=== PATIENT | female | born 1955 | race Caucasian/White ===

== ENCOUNTER → 2017-08-22 | Outpatient (CLI) | payer OTHER ==
--- NOTE | 2017-08-23 10:54 | MM ---
Reason for exam: screening (asymptomatic). Last mammogram was performed 2 years and 1 month ago. History: Patient is postmenopausal, has history of other cancer at age 33, and is nulliparous. Physical Findings: A clinical breast exam by your physician is recommended on an annual basis and results should be correlated with mammographic findings. MG Screening Mammo w CAD Bilateral CC and MLO view(s) were taken. Prior study comparison: August 03, 2015, bilateral MG screening mammo w CAD. May 03, 2010, mammogram, performed at [facility]. There are scattered fibroglandular densities. No significant changes when compared with prior studies. ASSESSMENT: Benign, BI-RAD 2 RECOMMENDATION: Routine screening mammogram of both breasts in 1 year.
== END | disposition home or self-care (01) ==
LOC: RADMAMWWP 13:07
PROVIDERS: ATTEND Internal Medicine
DX: Z12.31 Encounter for screening mammogram for malignant neoplasm of breast (principal)
CPT/HCPCS: 77067

== ENCOUNTER 2017-08-27 09:56 | Day surgery (SDC) | payer OTHER ==
[2017-08-23 15:56] VITALS: BMI 37.4
[~2017-08-27 09:56] MED LIST: LACTATED RINGERS 1,000 ML IV SCH
[2017-08-27 10:55] VITALS: RESP 16; TEMP 98.2
[2017-08-27] MEDS ORDERED: LIDOCAINE 1% 20 ML VIAL (10MG/ML) FOR IV START INTRADERMA ONE (11:02)
[2017-08-27] MEDS ORDERED: fentaNYL (PF) 50 MCG/ML 2 ML AMP ONE (11:04)
[2017-08-27] MEDS ORDERED: PROPOFOL 10 MG/ML 20 ML VIAL IV ONE (11:04)
--- NOTE | 2017-08-27 11:09 | P.GSHP ---
History of Present Illness H&P Date: 08/27/17 Chief Complaint: Screening colonoscopy This is a 62-year-old female referred from Dr. Granger. Patient is today for screening colonoscopy. 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), prolapsed bladder, hx skin cancer, HEMMORIODS History of Any Multi-Drug Resistant Organisms: None Reported Past Surgical History: Bladder Surgery Additional Past Surgical History / Comment(s): bladder sling, hemorrhoidectomy, FOOT SX Past Anesthesia/Blood Transfusion Reactions: No Reported Reaction Smoking Status: Former smoker - Past Family History Mother Family Medical History: Cancer Additional Family Medical History / Comment(s): LUNG Medications and Allergies Home Medications Medication Instructions Recorded Confirmed Type Ibuprofen [Motrin] 800 mg PO QID PRN 01/07/15 08/23/17 History Omeprazole [PriLOSEC] 20 mg PO BID PRN 01/07/15 08/23/17 History traMADol HCl [Ultram] 50 mg PO TID 01/07/15 08/23/17 History Atorvastatin [Lipitor] 20 mg PO DAILY 08/23/17 08/23/17 History Gabapentin [Neurontin] 400 mg PO TID 08/23/17 08/23/17 History tiZANidine HCL 2 mg PO TID PRN 08/23/17 08/23/17 History Allergies Allergy/AdvReac Type Severity Reaction Status Date / Time codeine Allergy Rash/Hives Verified 08/27/17 10:34 Surgical - Exam Vital Signs Temp Pulse Resp BP Pulse Ox 98.2 F 85 16 169/77 97 08/27/17 10:54 08/27/17 10:54 08/27/17 10:54 08/27/17 10:54 08/27/17 10:54 - General well developed, no distress - Eyes PERRL - ENT normal pinna - Neck no masses - Respiratory normal expansion - Cardiovascular Rhythm: regular - Abdomen Abdomen: soft, non tender Assessment and Plan Assessment: We will perform screening colonoscopy.
[2017-08-27 11:52] VITALS: BP 106/69; PULSE 82
--- NOTE | 2017-09-04 10:53 | P.OP ---
Date of Procedure: 08/27/17 Preoperative Diagnosis: Screening colonoscopy Postoperative Diagnosis: Diverticulosis Procedure(s) Performed: Colonoscopy Anesthesia: MAC Surgeon: Erik Gonzalez Pathology: none sent Condition: stable Disposition: PACU Description of Procedure: Patient's placed the operative table in supine position. She received IV sedation. Digital rectal exam was performed which revealed no abnormalities. The flexible colonoscope was then placed patient anus passed throughout the entire colon. The ileocecal valve was visualized. The cecum, ascending and transverse colon appeared normal. The descending; mild diverticular changes. The scope summer back the rectum appeared normal. Scope was withdrawn for patient.
== END 2017-08-27 12:07 | disposition home or self-care (01) ==
LOC: ORWHC2ENDO 09:56
PROVIDERS: ATTEND Surgery
DX: Z12.11 Encounter for screening for malignant neoplasm of colon (principal); K57.30 Diverticulosis of large intestine without perforation or abscess without bleeding; E78.5 Hyperlipidemia, unspecified; K21.9 Gastro-esophageal reflux disease without esophagitis; M19.90 Unspecified osteoarthritis, unspecified site; Z87.891 Personal history of nicotine dependence; Z86.19 Personal history of other infectious and parasitic diseases; Z85.828 Personal history of other malignant neoplasm of skin; Z79.899 Other long term (current) drug therapy; Z79.891 Long term (current) use of opiate analgesic; Z88.5 Allergy status to narcotic agent
CPT/HCPCS: 45378; J3010; J2704

== ENCOUNTER → 2018-07-23 | Outpatient (CLI) | payer MEDICARE ==
--- NOTE | 2018-07-23 07:55 | US ---
EXAMINATION TYPE: US abdomen complete DATE OF EXAM: 07/23/2018 COMPARISON: NONE CLINICAL HISTORY: Left Upper R10.12 R10.9 Pelvic Pain. EXAM MEASUREMENTS: Liver Length: 13.9 cm Gallbladder Wall: 0.3 cm CBD: 0.6 cm Spleen: 8.7 cm Right Kidney: 10.1 x 4.5 x 5.6 cm Left Kidney: 9.6 x 5.3 x 4.9 cm Pancreas: visualized portions wnl, fluid filled stomach noted as patient was drinking for a pelvic u ltrasound. Liver: wnl Gallbladder: appears contracted, patient states she has not eaten since 8 pm and only drinking water for pelvic exam Evidence for sonographic Sage's sign: No CBD: wnl Spleen: wnl Right Kidney: No hydronephrosis or masses seen Left Kidney: No hydronephrosis or masses seen Upper IVC: wnl Abd Aorta: wnl The liver is homogenous. The intrahepatic portion of the IVC and proximal abdominal aorta are within normal limits. There is no evidence of cholelithiasis. Common bile duct is unremarkable. The visu alized portions of the pancreas are homogenous. The spleen is unremarkable. Kidneys are symmetric a nd free of hydronephrosis. No renal lesions are seen. IMPRESSION: 1. Contracted gallbladder. Otherwise unremarkable study.
--- NOTE | 2018-07-23 07:56 | US ---
EXAMINATION TYPE: US transvaginal DATE OF EXAM: 07/23/2018 COMPARISON: NONE CLINICAL HISTORY: Left Upper R10.12 R10.9 Pelvic Pain. TECHNIQUE: Transvaginal (TV). Patient was not full, so she opted for TV. Date of LMP: postmenopausal, no HRT. EXAM MEASUREMENTS: Uterus: 6.8 x 2.8 x 4.0 cm Endometrial Stripe: 0.3 cm Right Ovary: 2.4 x 1.9 x 1.4 cm Left Ovary: 2.6 x 1.8 x 1.5 cm 1. Uterus: Anteverted wnl 2. Endometrium: wnl 3. Right Ovary: wnl 4. Left Ovary: wnl 5. Bilateral Adnexa: wnl 6. Posterior cul-de-sac: no free fluid IMPRESSION: 1. No distinct abnormality appreciated.
== END | disposition home or self-care (01) ==
LOC: RADUSWWP 06:48
PROVIDERS: ATTEND Internal Medicine
DX: K82.0 Obstruction of gallbladder (principal); R10.12 Left upper quadrant pain; R10.2 Pelvic and perineal pain
CPT/HCPCS: 76700; 76830

== ENCOUNTER → 2018-08-16 | Outpatient (CLI) | payer MEDICARE ==
[2018-08-16 16:20] LABS: DHEA Sulfate 50.6 ug/dL (26.0-430.0)
[2018-08-16 16:22] LABS: T4, Free (Free Thyroxine) 0.9 ng/dL (0.80-1.80)
[2018-08-16 16:24] LABS: Progesterone <0.2 ng/mL
[2018-08-16 16:25] LABS: Insulin Level 28.5 mIU/mL (3.0-25.0)
== END | disposition home or self-care (01) ==
LOC: LABWHC1 10:03
PROVIDERS: ATTEND Surgery
DX: E34.9 Endocrine disorder, unspecified (principal); R53.81 Other malaise; N95.2 Postmenopausal atrophic vaginitis; G47.00 Insomnia, unspecified; R68.82 Decreased libido; R61 Generalized hyperhidrosis
CPT/HCPCS: 36415; 82627; 82670; 82728; 83001; 83002; 83525; 84140; 84144; 84270; 84402; 84403; 84439; 84443; 84481

== ENCOUNTER → 2018-08-23 | Outpatient (CLI) | payer MEDICARE ==
--- NOTE | 2018-08-26 10:52 | MM ---
Reason for exam: screening (asymptomatic). Last mammogram was performed 1 year ago. History: Patient is postmenopausal, has history of other cancer at age 33, and is nulliparous. Physical Findings: A clinical breast exam by your physician is recommended on an annual basis and results should be correlated with mammographic findings. MG Screening Mammo w CAD Bilateral CC and MLO view(s) were taken. Prior study comparison: August 22, 2017, bilateral MG screening mammo w CAD. August 03, 2015, bilateral MG screening mammo w CAD. No significant changes when compared with prior studies. ASSESSMENT: Benign, BI-RAD 2 RECOMMENDATION: Routine screening mammogram of both breasts in 1 year.
== END ==
LOC: RADMAMWWP 09:18
PROVIDERS: ATTEND Internal Medicine
DX: Z12.31 Encounter for screening mammogram for malignant neoplasm of breast (principal)
CPT/HCPCS: 77067

== ENCOUNTER 2018-11-04 10:27 | Emergency (ER) | payer MEDICARE ==
[2018-11-04 10:52] VITALS: TEMP 97.8
[2018-11-04] MEDS ORDERED: HYDROcodone/APAP 5-325MG 1 EACH TAB PO STA (10:53)
--- NOTE | 2018-11-04 10:56 | ED ---
Lower Extremity Injury HPI - General Chief Complaint: Extremity Injury, Lower Stated Complaint: fall/left ankle pain Time Seen by Provider: 11/04/18 10:36 Source: patient, RN notes reviewed, old records reviewed Mode of arrival: EMS Limitations: no limitations - History of Present Illness Initial Comments: Patient is a 63-year-old female who presents emergency department today for evaluation of left ankle pain. Patient reports that she was walking, tripped in a hole with her left ankle. She reports she rolled it. She states swelling and tenderness over the lateral malleolus. Patient states that she's had no previous sprains or injury to this ankle. Patient states that she's had no other pain related to this fall or injury. Patient denies peripheral paresthesias. Patient states that she has had no chest pain shortness breath, nausea or vomiting. - Related Data Home Medications Medication Instructions Recorded Confirmed traMADol HCl [Ultram] 50 mg PO TID 01/07/15 11/04/18 Atorvastatin [Lipitor] 20 mg PO DAILY 08/23/17 11/04/18 Gabapentin [Neurontin] 100 mg PO TID 11/04/18 11/04/18 Previous Rx's Medication Instructions Recorded Naproxen 500 mg PO BID #20 tablet 11/04/18 Allergies Allergy/AdvReac Type Severity Reaction Status Date / Time codeine Allergy Rash/Hives Verified 11/04/18 11:06 Review of Systems ROS Statement: Those systems with pertinent positive or pertinent negative responses have been documented in the HPI. ROS Other: All systems not noted in ROS Statement are negative. Past Medical History Past Medical History: Cancer, GERD/Reflux, Hyperlipidemia, Liver Disease, Pneumonia Additional Past Medical History / Comment(s): hepatitic C and B(B in remission), arthritis, prolapsed bladder, hx skin cancer History of Any Multi-Drug Resistant Organisms: None Reported Past Surgical History: Bladder Surgery, Orthopedic Surgery Additional Past Surgical History / Comment(s): bladder sling, hemorrhoidectomy, Past Anesthesia/Blood Transfusion Reactions: No Reported Reaction Past Psychological History: No Psychological Hx Reported Smoking Status: Former smoker Past Alcohol Use History: None Reported Past Drug Use History: None Reported - Past Family History Mother Family Medical History: Cancer Additional Family Medical History / Comment(s): LUNG General Exam - General Exam Comments Initial Comments: This is a 63-year-old female. Alert and oriented 3. No significant distress. Limitations: no limitations General appearance: alert, in no apparent distress Head exam: Present: atraumatic, normocephalic, normal inspection Eye exam: Present: normal appearance, PERRL, EOMI. Absent: scleral icterus, conjunctival injection, periorbital swelling ENT exam: Present: normal exam, mucous membranes moist Neck exam: Present: normal inspection. Absent: tenderness, meningismus, lymphadenopathy Respiratory exam: Present: normal lung sounds bilaterally. Absent: respiratory distress, wheezes, rales, rhonchi, stridor Cardiovascular Exam: Present: regular rate, normal rhythm, normal heart sounds. Absent: systolic murmur, diastolic murmur, rubs, gallop, clicks GI/Abdominal exam: Present: soft, normal bowel sounds. Absent: distended, tenderness, guarding, rebound, rigid Extremities exam: Present: normal inspection, full ROM, normal capillary refill. Absent: tenderness, pedal edema, joint swelling, calf tenderness Left Lower Leg exam: Present: normal inspection, full ROM Ankle exam: Present: tenderness, swelling (over lateral malleolus ). Absent: normal inspection, full ROM Foot/Toe exam: Present: normal inspection, full ROM Neurovascular tendon exam: Present: no vascular compromise Gait: not tested/not observed Back exam: Present: normal inspection Neurological exam: Present: alert, oriented X3, CN II-XII intact Psychiatric exam: Present: normal affect, normal mood Skin exam: Present: warm, dry, intact, normal color. Absent: rash Course Vital Signs 11/04/18 10:46 Temperature 97.8 F Pulse Rate 85 Respiratory 18 Rate Blood Pressure 133/73 O2 Sat by Pulse 96 Oximetry Procedures - Orthopedic Splinting/Casting Injury #1 Side: left Lower Extremity Injury Location: ankle Lower Extremity Immobilizer: stirrup splint, Reji wrap, synthetic pre-padded splint Other Orthopedic Equipment: crutches Additional Comments: She was reevaluated neurovascularly intact. Medical Decision Making - Medical Decision Making Patient is a 63-year-old female presents for his pharmacy with left ankle pain and flank after tripping into a hole in the grass. At this time Patient has evidence of tenderness or lateral malleolus. X-ray was reviewed and shows no significant fracture. There is evidence of soft tissue swelling. This time radiology is unable to read the report this time. Patient at this time will be placed in a ankle stirrup splint for a significant sprain. I discussed falling up with orthopedic if symptoms continue to persist and swelling unable to bear weight. Patient understands history plan will comply. Return parameters were discussed. - Radiology Data Radiology results: image reviewed X-ray is negative for acute fracture. Evidence of soft tissue swelling over the lateral malleolus. Disposition Clinical Impression: Left ankle sprain Disposition: HOME SELF-CARE Condition: Good Instructions (If sedation given, give patient instructions): Ankle Sprain (ED) Additional Instructions: Is advised to rest, ice, elevate the foot and ankle. Patient should remain in splint was seen by orthopedic. Ambulate with crutches. Take Motrin Tylenol for pain. Return to the emergency department if any alarming signs or symptoms occur. Prescriptions: Naproxen 500 mg PO BID #20 tablet Is patient prescribed a controlled substance at d/c from ED?: No Referrals: Crispin Hook MD [Primary Care Provider] - 1-2 days Esau Lam DO [Doctor of Osteopathic Medicine] - 1-2 days Time of Disposition: 11:37
--- NOTE | 2018-11-04 12:09 | XR ---
EXAMINATION TYPE: XR ankle complete LT DATE OF EXAM: 11/04/2018 COMPARISON: NONE HISTORY: Pain TECHNIQUE: 3 views of the left ankle are submitted for evaluation. FINDINGS: Small avulsion or chip fracture from the lateral malleolar tip. Adjacent soft tissue swelli ng. Remote avulsion fracture from the medial malleolus. Ankle mortise is intact. IMPRESSION: 1. Small avulsion or chip fracture from the lateral malleolar tip.
[2018-11-04 12:54] VITALS: BP 132/70; PULSE 78; RESP 16
== END 2018-11-04 12:53 | disposition home or self-care (01) ==
LOC: EC 10:27
DX: S93.402A Sprain of unspecified ligament of left ankle, initial encounter (principal); E78.5 Hyperlipidemia, unspecified; Z79.899 Other long term (current) drug therapy; Z88.5 Allergy status to narcotic agent; Z85.828 Personal history of other malignant neoplasm of skin; Z87.891 Personal history of nicotine dependence; W01.0XXA Fall on same level from slipping, tripping and stumbling without subsequent striking against object, initial encounter; Y93.01 Activity, walking, marching and hiking
CPT/HCPCS: 29515; 99284

== ENCOUNTER → 2019-10-13 | Outpatient (CLI) | payer MEDICARE ==
[2019-10-13 07:53] LABS: Appearance,Urine Clear (Clear); Bacteria,Urine Rare /hpf; Bilirubin,Urine Negative (Negative); Blood,Urine Trace (Negative); Color,Urine Yellow; Glucose,Urine (UA) Negative (Negative); Ketones,Urine Negative (Negative); Leukocyte Esterase,Urine Small (Negative); Mucus,Urine Rare /hpf; Nitrite,Urine Negative (Negative); Protein,Urine Negative (Negative); RBC,Urine 1 /hpf (0-5); Specific Gravity,Urine 1.021 (1.001-1.035); Squamous Epithelial Cell,Urine 3 /hpf (0-4); Urobilinogen,Urine <2.0 mg/dL (<2.0); WBC,Urine 23 /hpf (0-5)
[2019-10-15 16:10] LABS: Anabasine Urine <2.0 ng/mL (<2.0)
== END | disposition home or self-care (01) ==
LOC: LABWHC1 07:14
PROVIDERS: ATTEND Otolaryngology
DX: Z01.818 Encounter for other preprocedural examination (principal); A63.8 Other specified predominantly sexually transmitted diseases
CPT/HCPCS: 81001; 36415; G0480; 80323

== ENCOUNTER → 2019-10-15 | Outpatient (CLI) | payer MEDICARE ==
[2019-10-15 10:16] LABS: Basophils % (A) 0 %; Eosinophils # (A) 0.1 k/uL (0-0.7); Eosinophils % (A) 2 %; HCT 43.5 % (34.0-46.0); HGB 14.6 gm/dL (11.4-16.0); Lymphocytes # (A) 1.7 k/uL (1.0-4.8); Lymphocytes % (A) 28 %; MCH 34.1 pg (25.0-35.0); MCHC 33.6 g/dL (31.0-37.0); MCV 101.4 fL (80.0-100.0); Mean Platelet Volume 8.5; Monocytes # (A) 0.4 k/uL (0-1.0); Monocytes % (A) 7 %; Neutrophils # (A) 3.6 k/uL (1.3-7.7); Neutrophils % (A) 61 %; Platelet Count 241 k/uL (150-450); RBC 4.29 m/uL (3.80-5.40); RDW 12.5 % (11.5-15.5)
[2019-10-15 17:01] LABS: INR 0.92 (0.90-1.11); Partial Thromboplastin Time 26.5 sec (24.7-29.9); Prothrombin Time 9.9 sec (9.9-11.9)
[2019-10-15 18:29] LABS: HIV 2 AB Non-Reactive (Non-Reactive); HIV AB P24 Non-Reactive (Non-Reactive); HIV P24 AG Non-Reactive (Non-Reactive)
[2019-10-15 18:38] LABS: ALT 35 U/L (8-44); AST 28 U/L (13-35); African American GFR (CKD) 110.1 (60.0-200.0); Albumin/Globulin Ratio 1.86 (1.60-3.17); Alkaline Phosphatase 57 U/L (41-126); BUN/Creat Ratio 21.67 Ratio (12.00-20.00); Bilirubin, Conjugated <0.20 mg/dL (0.20-0.40); Calcium 9.2 mg/dL (8.7-10.3); Chloride 104 mmol/L (96-109); Chol/HDL Ratio 5.15; Cholesterol 268 mg/dL (0-200); Globulin 2.2 g/dL (1.6-3.3); Glucose 93 mg/dL (70-110); LDL Cholesterol,Calculated 188.4 mg/dL (0.0-131.0); Potassium 4.3 mmol/L (3.5-5.5); Sodium 138 mmol/L (135-145); Total Bilirubin 0.5 mg/dL (0.2-1.2); Total Protein 6.3 g/dL (6.2-8.2)
[2019-10-15 19:31] LABS: Hepatitis A Antibody IgM Non-Reactive (Non-Reactive); Hepatitis B Core IgM Non-Reactive (Non-Reactive); Hepatitis B Surface Antigen Non-Reactive (Non-Reactive); Hepatitis C IgG Antibody Reactive (Non-Reactive)
== END | disposition home or self-care (01) ==
LOC: LABWHC1 08:35
PROVIDERS: ATTEND Otolaryngology
DX: Z01.818 Encounter for other preprocedural examination (principal); A63.8 Other specified predominantly sexually transmitted diseases; Z13.228 Encounter for screening for other metabolic disorders; Z13.29 Encounter for screening for other suspected endocrine disorder; Z13.0 Encounter for screening for diseases of the blood and blood-forming organs and certain disorders involving the immune mechanism; R68.89 Other general symptoms and signs; M81.0 Age-related osteoporosis without current pathological fracture
CPT/HCPCS: 36415; 80053; 80061; 80074; 82248; 82306; 84443; 85025; 85610; 85730; 87390

== ENCOUNTER → 2019-11-04 | Outpatient (CLI) | payer MEDICARE | END | disposition home or self-care (01) | LOC: LABWHC1 11:21 | PROVIDERS: ATTEND Family Medicine | DX: Z01.818 Encounter for other preprocedural examination (principal) | CPT/HCPCS: U0003; C9803 ==

== ENCOUNTER → 2020-03-10 | Outpatient (CLI) | payer MEDICARE ==
--- NOTE | 2020-03-10 14:10 | MM ---
Reason for exam: screening (asymptomatic). Last mammogram was performed 1 year and 6 months ago. History: Patient is postmenopausal, has history of other cancer at age 33, and is nulliparous. Taking estrogen. Physical Findings: A clinical breast exam by your physician is recommended on an annual basis and results should be correlated with mammographic findings. MG 3D Screening Mammo W/Cad Bilateral CC and MLO view(s) were taken. Prior study comparison: August 23, 2018, bilateral MG screening mammo w CAD. August 22, 2017, bilateral MG screening mammo w CAD. There are scattered fibroglandular densities. There is chronic nodularity in the left breast. There is no discrete abnormality. ASSESSMENT: Benign, BI-RAD 2 RECOMMENDATION: Routine screening mammogram of both breasts in 1 year.
== END | disposition home or self-care (01) ==
LOC: RADMAMWWP 07:51
PROVIDERS: ATTEND Family Medicine
DX: Z12.31 Encounter for screening mammogram for malignant neoplasm of breast (principal)
CPT/HCPCS: 77063; 77067

== ENCOUNTER → 2020-03-10 | Outpatient (CLI) | payer MEDICARE ==
[2020-03-10 15:30] LABS: Follicle Stimulating Hormone 12.5 mIU/mL
== END | disposition home or self-care (01) ==
LOC: LABWHC1 08:21
PROVIDERS: ATTEND Obstetrics & Gynecology
DX: E34.50 Androgen insensitivity syndrome, unspecified (principal); R53.83 Other fatigue; N95.1 Menopausal and female climacteric states
CPT/HCPCS: 36415; 82670; 83001; 84144; 84403

== ENCOUNTER → 2021-08-10 | Outpatient (CLI) | payer MEDICARE ==
--- NOTE | 2021-08-11 13:20 | MM ---
Reason for exam: screening (asymptomatic). Last mammogram was performed 1 year and 5 months ago. History: Patient is postmenopausal, has history of other cancer at age 33, and is nulliparous. Taking estrogen for 2 years 6 months. Taking progesterone for 2 years 6 months. Physical Findings: A clinical breast exam by your physician is recommended on an annual basis and results should be correlated with mammographic findings. MG 3D Screening Mammo W/Cad Bilateral CC and MLO view(s) were taken. XCCL view(s) were taken of the left breast. Prior study comparison: March 10, 2020, bilateral MG 3d screening mammo w/cad. August 23, 2018, bilateral MG screening mammo w CAD. There are scattered fibroglandular densities. There is no discrete abnormality. ASSESSMENT: Negative, BI-RAD 1 RECOMMENDATION: Routine screening mammogram of both breasts in 1 year.
== END | disposition home or self-care (01) ==
LOC: RADMAMWWP 10:36
PROVIDERS: ATTEND Family Medicine
DX: Z12.31 Encounter for screening mammogram for malignant neoplasm of breast (principal); Z78.0 Asymptomatic menopausal state
CPT/HCPCS: 77063; 77067

== ENCOUNTER 2021-11-04 07:58 | Day surgery (SDC) | payer MEDICARE ==
[2021-11-04 08:17] VITALS: TEMP 96.9
[2021-11-04] MEDS ORDERED: BUPIVACAINE (PF) 0.5% 30 ML VIAL SQ ONE (08:50)
[2021-11-04 09:21] VITALS: RESP 16
[2021-11-04 09:36] VITALS: BP 127/82; PULSE 71
--- NOTE | 2021-11-04 14:15 | P.OP ---
Date of Procedure: 11/04/21 Preoperative Diagnosis: Hammertoe 4th digit right foot Postoperative Diagnosis: Same Procedure(s) Performed: Hammertoe correction 4th digit right foot Implants: Arthrex 1.5mm Trim-It pin Anesthesia: local Surgeon: Stone Cota Estimated Blood Loss (ml): 3 Pathology: none sent Condition: stable Disposition: PACU
--- NOTE | 2021-11-04 19:32 | OP ---
OPERATIVE REPORT DATE OF SURGERY: November 04, 2021. PREOP DIAGNOSIS: Hammertoe deformity of the right fourth digit. POSTOP DIAGNOSIS: Hammertoe deformity of the right fourth digit. PROCEDURE: Hammertoe correction, right fourth digit. SURGEON: Dr. Stone Cota DPM. ANESTHESIA: Local hemostasis right foot tourniquet ESTIMATED BLOOD LOSS: Minimal. MATERIALS: An Arthrex 1.5 mm Trim it pin. INJECTABLES: 10 mL 0.25% Marcaine preop. SPECIMENS: None. COMPLICATIONS: None. DESCRIPTION OF PROCEDURE: Report is as follows: The patient was brought into the operating room, placed on table in supine position. A time-out was taken to confirm correct patient identifiers, correct site of surgery and correct procedure. When all staff in the room were in agreement with the time-out, the patient was injected with 10 mL of 0.25% Marcaine as a proximal fourth digit block in the right foot. The right foot was then prepped and draped in the usual manner. An Esmarch bandage was used to exsanguinate the foot and then left in place in the midfoot to act as a tourniquet. Then, attention was directed to the distal interphalangeal joint of the fourth toe where a transverse incision was made directly over the joint. It was deepened down to the subcutaneous tissue careful to identify, avoid and retract any neurovascular structures and cauterize any bleeding vessels. Dissection was then carried down to the level of the joint capsule which was incised over the distal interphalangeal joint. The head of the middle phalanx was exposed and resected with a sagittal saw and a plantar capsulotomy performed to release of flexion contracture. The digit was then brought into alignment and then most of the contracture was fully released and the digit was rectus. A guidewire for an Arthrex 1.5 mm Trim and fit was then used to create airline pilot holes in the distal and proximal phalanges. Then it was inserted the base of the distal phalanx and advanced up the distal tip of the toe. The tip of the wire was left exposed at the base of the distal phalanx, which was aligned with a drill hole in the middle phalanx. Then that wire was advanced again to further ream the canals out. The pin was removed completely and then the 1.5 mm Trim and fit pin was inserted at the base of the distal phalanx and advanced up the distal aspect of the toe, leaving a small portion exposed that it could be realigned with the airline pilot hole in the middle phalanx. With the digit held in a rectus position, the pin was advanced through the canals into the proximal phalanx. The digit was checked for alignment, which was noted to be rectus and then the pin was retracted approximately 3-4 mm. It was cut flush with the skin and then impacted into the distal phalanx, so it did not protrude. The toe was stable without any flexion occurring at the distal or proximal interphalangeal joints. Final fluoroscopic imaging showed rectus alignment of the fourth toe. The wound was irrigated thoroughly with normal saline. The extensor tendon was reapproximated with 4-0 Vicryl. Skin closure with 3-0 nylon. A nonadherent dressing and then a dry sterile bandage was applied to the right foot. The tourniquet was released. Capillary refill returned to all digits of the right foot. The patient tolerated the above procedure and anesthesia well and went to recovery with vital signs stable. MMODL / IJN: [id number] /
== END 2021-11-04 09:49 | disposition home or self-care (01) ==
LOC: OR 07:58
PROVIDERS: ATTEND Podiatrist
DX: M20.41 Other hammer toe(s) (acquired), right foot (principal); G57.61 Lesion of plantar nerve, right lower limb; E78.5 Hyperlipidemia, unspecified; R42 Dizziness and giddiness; K30 Functional dyspepsia; Z85.828 Personal history of other malignant neoplasm of skin; Z79.899 Other long term (current) drug therapy; Z88.5 Allergy status to narcotic agent; Z87.891 Personal history of nicotine dependence; Z97.3 Presence of spectacles and contact lenses
CPT/HCPCS: 28285; C1713

== ENCOUNTER → 2022-05-05 | Outpatient (CLI) | payer MEDICARE ==
[2022-05-05 15:22] LABS: Basophils # (A) 0.03 X 10*3/uL (0.00-0.10); Basophils % (A) 0.4 %; Eosinophils # (A) 0.09 X 10*3/uL (0.04-0.35); Eosinophils % (A) 1.3 %; HCT 43.3 % (37.2-46.3); HGB 14.4 g/dL (12.0-15.0); Immature Grans, Automated 0.3 %; Lymphocytes # (A) 1.93 X 10*3/uL (0.90-5.00); Lymphocytes % (A) 27.5 %; MCH 31.8 pg (27.0-32.0); MCHC 33.3 g/dL (32.0-37.0); MCV 95.6 fL (80.0-97.0); Mean Platelet Volume 10.9 fL (9.5-12.2); Monocytes # (A) 0.64 X 10*3/uL (0.20-1.00); Monocytes % (A) 9.1 %; NRBC Per 100 WBC 0 /100 WBCS (0.0-0.0); Neutrophils # (A) 4.31 X 10*3/uL (1.80-7.70); Neutrophils % (A) 61.4 %; Platelet Count 186 X 10*3/uL (140-440); RBC 4.53 X 10*6/uL (4.10-5.20); RDW 12.4 % (11.5-14.5); WBC 7.02 X 10*3/uL (4.50-10.00)
[2022-05-05 18:35] LABS: ALT 24 U/L (8-44); AST 27 U/L (13-35); African American GFR (CKD) 98.2 (60.0-200.0); Albumin 4.4 g/dL (3.8-4.9); Albumin/Globulin Ratio 1.84 (1.60-3.17); Alkaline Phosphatase 58 U/L (41-126); BUN/Creat Ratio 17.52 Ratio (12.00-20.00); Blood Urea Nitrogen 12.7 mg/dL (9.0-27.0); Calcium 9.5 mg/dL (8.7-10.3); Carbon Dioxide 17.1 mmol/L (20.0-27.5); Chloride 109 mmol/L (96-109); Chol/HDL Ratio 3.57 Ratio; Globulin 2.4 g/dL (1.6-3.3); Glucose 97 mg/dL (70-110); LDL Cholesterol,Calculated 118.7 mg/dL (0.0-131.0); Non-African American GFR(CKD) 84.7 (60.0-200.0); Potassium 4.1 mmol/L (3.5-5.5); Sodium 145 mmol/L (135-145); Total Protein 6.9 g/dL (6.2-8.2)
== END | disposition home or self-care (01) ==
LOC: LABWHC1 08:31
PROVIDERS: ATTEND Internal Medicine
DX: E78.5 Hyperlipidemia, unspecified (principal); K21.9 Gastro-esophageal reflux disease without esophagitis; M81.0 Age-related osteoporosis without current pathological fracture
CPT/HCPCS: 36415; 80053; 80061; 82306; 82672; 84144; 84403; 85025

== ENCOUNTER → 2022-12-08 | Outpatient (CLI) | payer MEDICARE ==
--- NOTE | 2022-12-11 11:39 | MM ---
Reason for Exam: Screening (asymptomatic). Last mammogram was performed 1 year(s) and 4 month(s) ago. Patient History: Menarche at age 11. Patient has no children. Postmenopausal. Currently using Estrogen, for 2 years, 6 months. Currently using Progesterone, for 2 years, 6 months. Risk Values: Deisi 5 year model risk: 1.9%. NCI Lifetime model risk: 5.9%. Prior Study Comparison: 08/03/2015 Bilateral Screening Mammogram, [facility]. 08/22/2017 Bilateral Screening Mammogram, [facility]. 08/23/2018 Bilateral Screening Mammogram, [facility]. 03/10/2020 Bilateral Screening Mammogram, [facility]. 08/10/2021 Bilateral Screening Mammogram, [facility]. Tissue Density: There are scattered fibroglandular densities. Findings: Analyzed By CAD. There is no suspicious group of microcalcifications or new suspicious mass in either breast. Overall Assessment: Negative, BI-RAD 1 Management: Screening Mammogram of both breasts in 1 year. . Patient should continue monthly self-breast exams. A clinical breast exam by your physician is recommended on an annual basis. This exam should not preclude additional follow-up of suspicious palpable abnormalities. Note on Deisi scores and lifetime risk: 1. A Deisi score greater than 3% is considered moderate risk. If this is the case, consider specialist referral to assess eligibility for a risk reducing agent. 2. If overall lifetime risk for the development of breast cancer is 20% or higher, the patient may qualify for future screening with alternating mammogram and breast MRI. Electronically signed and approved by: Andrew Daniel M.D. Radiologis
== END | disposition home or self-care (01) ==
LOC: RADMAMWWP 12:10
PROVIDERS: ATTEND Internal Medicine
DX: Z12.31 Encounter for screening mammogram for malignant neoplasm of breast (principal); Z78.0 Asymptomatic menopausal state
CPT/HCPCS: 77063; 77067

== ENCOUNTER → 2024-02-27 | Outpatient (CLI) | payer MEDICARE ==
--- NOTE | 2024-02-27 16:01 | XR ---
EXAMINATION TYPE: XR chest 2V DATE OF EXAM: 02/27/2024 2:27 PM COMPARISON: None CLINICAL INDICATION: Female, 68 years old with history of F17.21; TECHNIQUE: XR chest 2V Frontal and lateral views of the chest. FINDINGS: Lungs/Pleura: There is no evidence of pleural effusion, focal consolidation, or pneumothorax. Pulmonary vascularity: Unremarkable. Heart/mediastinum: Cardiomediastinal silhouette is unremarkable. Musculoskeletal: No acute osseous pathology. Other findings: None IMPRESSION: No acute cardiopulmonary disease/process. [facility], , 02/27/2024 3:59 PM
[2024-02-27 18:17] LABS: Basophils # (A) 0.03 X 10*3/uL (0.00-0.10); Basophils % (A) 0.5 %; Eosinophils # (A) 0.12 X 10*3/uL (0.04-0.35); HCT 46.8 % (37.2-46.3); HGB 15.8 g/dL (12.0-15.0); Lymphocytes # (A) 2.26 X 10*3/uL (0.90-5.00); Lymphocytes % (A) 37.2 %; MCH 32.4 pg (27.0-32.0); MCHC 33.8 g/dL (32.0-37.0); MCV 96.1 FL (80.0-97.0); Mean Platelet Volume 11.8 FL (9.5-12.2); Monocytes # (A) 0.55 X 10*3/uL (0.20-1.00); NRBC Per 100 WBC 0 X 10*3/uL (0.00-0.01); Platelet Count 177 X 10*3/uL (140-440); RBC 4.87 X 10*6/uL (4.10-5.20); RDW 12.4 % (11.5-14.5); WBC 6.08 X 10*3/uL (4.50-10.00)
[2024-02-27 19:14] LABS: Carcinoembryonic Antigen <2.0 ng/mL (0.0-4.9)
[2024-02-27 19:21] LABS: ALT 27 U/L (8-44); AST 28 U/L (13-35); Albumin 4.5 g/dL (3.8-4.9); Albumin/Globulin Ratio 1.96 Ratio (1.60-3.17); Alkaline Phosphatase 74 U/L (41-126); BUN/Creat Ratio 25.17 Ratio (12.00-20.00); Blood Urea Nitrogen 15.1 mg/dL (9.0-27.0); Chloride 106 mmol/L (96-109); Chol/HDL Ratio 4.24 Ratio; Estradiol <20.0 pg/mL; Globulin 2.3 g/dL (1.6-3.3); Glucose 101 mg/dL (70-110); LDL Cholesterol,Calculated 91.3 mg/dL (0.0-131.0); Magnesium 2.1 mg/dL (1.5-2.4); Sodium 145 mmol/L (135-145); Total Bilirubin 0.3 mg/dL (0.3-1.2); Total Protein 6.8 g/dL (6.2-8.2)
--- NOTE | 2024-03-02 14:53 | MM ---
Reason for Exam: Screening (asymptomatic). Last mammogram was performed 1 year(s) and 3 month(s) ago. Patient History: Menarche at age 11. Patient has no children. Postmenopausal. Estrogen for 2 years, 6 months. Progesterone for 2 years, 6 months. Risk Values: Deisi 5 year model risk: 1.9%. NCI Lifetime model risk: 5.6%. Prior Study Comparison: 03/10/2020 Bilateral Screening Mammogram, [facility]. 08/10/2021 Bilateral Screening Mammogram, [facility]. 12/08/2022 Bilateral MG 3D screening mammo w/cad, [facility]. Tissue Density: There are scattered areas of fibroglandular density. Findings: Analyzed By CAD. The pattern is symmetrical. Focal asymmetries in the right breast No suspicious groups of microcalcifications, spiculated or lobular masses, architectural distortion or other secondary signs of malignancy are mammographically apparent. Overall Assessment: Benign, BI-RAD 2 Management: Screening Mammogram of both breasts in 1 year. A negative mammogram report should not preclude additional follow up of suspicious palpable abnormalities. Patient should continue monthly self breast exam. A clinical breast exam by your physician is recommended on an annual basis and results should be correlated with mammographic findings. Note on Deisi scores and lifetime risk: 1. A Deisi score greater than 3% is considered moderate risk. If this is the case, consider specialist referral to assess eligibility for a risk reducing agent. 2. If overall lifetime risk for the development of breast cancer is 20% or higher, the patient may qualify for future screening with alternating mammogram and breast MRI. [facility], , 03/02/2024 2:50 PM. Electronically signed and approved by: Elia Martinez D.O. Radiologis
--- NOTE | 2024-03-02 22:34 | BD ---
EXAMINATION TYPE: Axial Bone Density DATE OF EXAM: 02/27/2024 CLINICAL HISTORY: 68 years old Female. ICD-10 CODE: M85.8 , Additional History: Height: 63 Weight: 211 FRAX RISK QUESTIONS: Family History (Parent hip fracture): no History of Fracture in Adulthood: yes Secondary Osteoporosis: no RISK FACTORS HISTORY OF: Surgery to Spine/Hip(right/left)/Wrist (right/left): no MEDICATIONS: Thyroid Medications: no Osteoporosis Medications: no EXAM MEASUREMENTS: Bone mineral densitometry was performed using the [employer] System. Bone mineral density as measured about the Lumbar spine is: ----- L1-L4(G/cm2): 1.270 T Score Values are as follows: ----- L1: 0.3 ----- L2: 0.5 ----- L3: 0.6 ----- L4: 1.4 ----- L1-L4: 0.8 Z Score Values are as follows: ----- L1: 1.0 ----- L2: 1.1 ----- L3: 1.2 ----- L4: 2.0 ----- L1-L4: 1.4 Bone mineral density baseline Bone mineral density about the R hip (g/cm2): 0.840 Bone mineral density about the L hip (g/cm2): 0.870 T Score values are as follows: -----R Neck: -2.0 -----L Neck: -1.9 -----R Total: -1.3 -----L Total: -1.1 Z Score values are as follows: -----R Neck: -0.9 -----L Neck: -0.8 -----R Total: -0.6 -----L Total: -0.3 Bone mineral density baseline FRAX%s: The graph provided illustrates a 10.9% chance for a major osteoporotic fx and a 2.1% chance f or the hips probability for fx in 10 years time. IMPRESSION: Osteopenia (T Score between -2.5 and -1). There is slightly increased risk of fracture and the patient may be considered for treatment. Re-Screen 2-5 years. NOTE: T-SCORE=SD OF THE YOUNG ADULT MEAN. [facility], , 03/02/2024 10:32 PM
== END | disposition home or self-care (01) ==
LOC: RADMAMWWP 13:10
PROVIDERS: ATTEND Family Medicine
DX: Z12.31 Encounter for screening mammogram for malignant neoplasm of breast (principal); R92.323 Mammographic fibroglandular density, bilateral breasts; E55.9 Vitamin D deficiency, unspecified; D51.9 Vitamin B12 deficiency anemia, unspecified; M85.89 Other specified disorders of bone density and structure, multiple sites; K21.9 Gastro-esophageal reflux disease without esophagitis; E78.5 Hyperlipidemia, unspecified; F17.210 Nicotine dependence, cigarettes, uncomplicated; D64.9 Anemia, unspecified; Z78.0 Asymptomatic menopausal state
CPT/HCPCS: 71046; 77063; 77067; 77080; 80053; 80061; 82306; 82378; 82607; 82670; 82728; 82746; 83735; 84144; 84402; 84403; 84443; 85025

== ENCOUNTER → 2024-08-20 | Outpatient (CLI) | payer MEDICARE ==
--- NOTE | 2024-08-20 13:50 | XR ---
EXAMINATION TYPE: XR chest 2V DATE OF EXAM: 08/20/2024 CLINICAL INDICATION: Female, 69 years old with history of J18.0 bronchpneumonia, TECHNIQUE: Frontal and lateral views of the chest are obtained. COMPARISON: Chest x-ray February 27, 2024 FINDINGS: There is no focal air space opacity, pleural effusion, or pneumothorax seen. The cardiac silhouette size is stable and within normal limits. The osseous structures are intact. IMPRESSION: No acute cardiopulmonary process. [facility], , 08/20/2024 1:47 PM
== END | disposition home or self-care (01) ==
LOC: RADXRMAIN 13:11
PROVIDERS: ATTEND Family Medicine
DX: J18.0 Bronchopneumonia, unspecified organism (principal)
CPT/HCPCS: 71046